=== PATIENT | male | born 1965 | race Caucasian/White ===

== ENCOUNTER 2016-08-29 17:13 | Emergency (ER) | payer MEDICAID ==
[~2016-08-29] VITALS: Ht 185.4 cm; Wt 112.1 kg
[~2016-08-29 17:13] MED LIST: LISI5TAB18 PO; METF1000 PO; ORE25 PO
[2016-08-29 17:45] VITALS: BP 120/82
--- NOTE | 2016-08-29 20:14 | NUR ---
PATIENT AMBULATED TO ER BED 6.
--- NOTE | 2016-08-29 20:28 | NUR ---
PATIENT PRESENTS TO ED WITH LLE CELLULITS X 1 WK PORT WINE COLOR FROM ANKLE UP TO CALF RASH TO BUE X 3 DAYS AND FACIAL PUFFY FLUSHED SEVERE PRURITUS X YESTERDAY PT STATES MED HX DM, HTN. DENIES N/V/D; SKIN IS PINK/WARM/DRY; AAOX4 WITH EVEN AND STEADY GAIT; LUNGS CLEAR BL; HR EVEN AND REGULAR; PT DENIES ANY FEVER, CP, SOB, OR COUGH AT THIS TIME; PATIENT STATES PAIN OF 5/10 AT THIS TIME; VSS; PATIENT POSITIONED FOR COMFORT; HOB ELEVATED; BEDRAILS UP X2; BED DOWN. ER MD MADE AWARE OF PT STATUS.
--- NOTE | 2016-08-29 21:00 | NUR ---
PATIENT BEING EVALUATED BY DR. BUCKLEY.
[2016-08-29 21:04] LABS: BASOPHILS # (AUTO) 0.1 K/uL (0.00-0.22); BASOPHILS % (AUTO) 1.9 % (0.0-2.0); EOSINOPHILS # (AUTO) 0.5 K/uL (0-0.4); EOSINOPHILS % (AUTO) 7.3 % (0.0-4.0); HEMATOCRIT 47.2 % (36-52); HEMOGLOBIN 15.2 g/dL (12.0-18.0); LYMPHOCYTES % (AUTO) 14.7 % (20.5-51.1); MEAN CORPUSCULAR HEMOGLOBIN 28 pg (27-31); MEAN CORPUSCULAR HGB CONC 32 g/dL (33-37); MEAN CORPUSCULAR VOLUME 87 fL (80-94); MONOCYTES # (AUTO) 0.7 K/uL (0.8-1.0); MONOCYTES % (AUTO) 11.2 % (1.7-9.3); NEUTROPHILS # (AUTO) 4.3 K/uL (1.8-7.7); NEUTROPHILS % (AUTO) 64.9 % (42.2-75.2); PLATELET COUNT (AUTO) 169 K/uL (140-450); RED BLOOD CELL COUNT(AUTO) 5.45 MIL/uL (4.20-6.10); RED CELL DISTRIBUTION WIDTH 13.1 % (11.6-13.7); WHITE BLOOD COUNT (AUTO) 6.6 K/uL (4.8-10.8)
[2016-08-29 21:14] LABS: ANION GAP 10.8 (8-16); CALCIUM 8.8 mg/dL (8.5-10.1); CARBON DIOXIDE 30.4 mmol/L (21-32); CREATININE 1.1 mg/dL (0.7-1.3); POTASSIUM 4.2 mmol/L (3.5-5.1)
[2016-08-29 21:20] LABS: ALBUMIN 3.7 g/dL (3.4-5.0); TOTAL BILIRUBIN 0.3 mg/dL (0.0-1.0); TOTAL PROTEIN, SERUM 7.4 g/dL (6.4-8.2)
--- NOTE | 2016-08-29 21:41 | NUR ---
PT RESTING IN BED. NO SOB NOTED AT THIS TIME. PT DENIES ANY DISCOMFORT. WILL CONTINUE TO MONITOR.
--- NOTE | 2016-08-29 22:34 | NUR ---
PT HAVING US DONE AT BEDSIDE AT THIS TIME.
[2016-08-29] MEDS ORDERED: CLINDAMYCIN 900 MG in DEXTROSE 5% 100 ML IV ONE (23:40)
[2016-08-29] MEDS ORDERED: CLINDAMYCIN 900 MG/6 ML VIAL IV ONE (23:47)
--- NOTE | 2016-08-30 00:16 | NUR ---
PT RESTING IN BED. NO SOB NOTED. DENIES ANY DISCOMFORT AT THIS TIME. WILL CONTINUE TO MONITOR.
[2016-08-30 02:00] VITALS: BP 119/63
--- NOTE | 2016-08-30 02:00 | NUR ---
Patient discharged with v/s stable. Written and verbal after care instructions given and explained. Patient alert, oriented and verbalized understanding of instructions. Ambulatory with steady gait. All questions addressed prior to discharge. ID band removed. Patient advised to follow up with PMD. Rx of CLEOCIN given. Patient educated on indication of medication including possible reaction and side effects. Opportunity to ask questions provided and answered.
== END 2016-08-30 02:00 | disposition home or self-care (01) ==
LOC: MED 17:13
DX: R21 Rash and other nonspecific skin eruption (principal); E11.9 Type 2 diabetes mellitus without complications; I10 Essential (primary) hypertension; L53.9 Erythematous condition, unspecified; Z79.84 Long term (current) use of oral hypoglycemic drugs; Z79.899 Other long term (current) drug therapy
CPT/HCPCS: 36415; 80053; 82948; 85025; 85379; 93971; 96365; 99285; J3490; Q0092

== ENCOUNTER 2016-09-01 21:47 | Emergency (ER) | payer MEDICAID ==
[~2016-09-01] VITALS: Ht 182.9 cm; Wt 113.5 kg
[2016-09-01 22:24] VITALS: BP 135/87
--- NOTE | 2016-09-02 01:36 | NUR ---
PATIENT LEFT WITHOUT BEING SEEN BY DR. BUCKLEY. NO FURTHER CARE PROVIDED FOR PATIENT.
== END 2016-09-02 01:36 | disposition left against medical advice (07) ==
LOC: MED 21:47
DX: R21 Rash and other nonspecific skin eruption (principal); Z53.21 Procedure and treatment not carried out due to patient leaving prior to being seen by health care provider

== ENCOUNTER 2016-09-02 19:49 | Emergency (ER) | payer MEDICAID ==
[~2016-09-02] VITALS: Ht 185.4 cm; Wt 114.8 kg
[2016-09-02 20:47] VITALS: BP 150/100
--- NOTE | 2016-09-02 22:03 | NUR ---
AMBULATED TO ER BED 3
--- NOTE | 2016-09-02 22:05 | NUR ---
51Y M BIB SELF C/O CELLULITIS ON ALL EXTREMITIES. PT ARMS AND LEGS ARE SWOLLEN WITH RASH LIKE APPEARANCE THROUGHOUT. PT STATES CELLULITIS OCCURRED 2 WEEKS AGO AND WAS SEEN HERE AT [place] 1 WEEK AGO FOR TX. PT STATES TX AT [place] DID NOT SEEN TO WORK. PT DENIES ANY N/V/D, CP, SOB AT THE MOMENT. PT IS AAOX4. BREATHING IS CLEAR AND UNLBAORED BILAT.
--- NOTE | 2016-09-02 22:30 | NUR ---
Patient being evaluated by physician at bedside.
[2016-09-02 22:49] VITALS: BP 137/91
--- NOTE | 2016-09-02 22:49 | NUR ---
Patient discharged with v/s stable. Written and verbal after care instructions given and explained. Patient alert, oriented and verbalized understanding of instructions. Ambulatory with steady gait. All questions addressed prior to discharge. ID band removed. Patient advised to follow up with PMD. Rx of BENADRYL 25MG AND PREDNISONE 50MG, KEFLEX 500MG given. Patient educated on indication of medication including possible reaction and side effects. Opportunity to ask questions provided and answered.
== END 2016-09-02 22:49 | disposition home or self-care (01) ==
LOC: MED 19:49
DX: L30.9 Dermatitis, unspecified (principal); L03.90 Cellulitis, unspecified; I10 Essential (primary) hypertension; E11.9 Type 2 diabetes mellitus without complications
CPT/HCPCS: 99283

== ENCOUNTER 2016-10-02 16:56 | Emergency (ER) | payer MEDICAID ==
[~2016-10-02] VITALS: Ht 182.9 cm; Wt 110.9 kg
[2016-10-02 16:58] VITALS: BP 124/88
[2016-10-02 18:04] VITALS: BP 130/81
== END 2016-10-02 18:04 | disposition home or self-care (01) ==
LOC: MED 16:56
DX: L30.9 Dermatitis, unspecified (principal); E11.9 Type 2 diabetes mellitus without complications; I10 Essential (primary) hypertension; Z79.84 Long term (current) use of oral hypoglycemic drugs; Z79.899 Other long term (current) drug therapy
CPT/HCPCS: 99283

== ENCOUNTER 2017-12-04 14:10 | Emergency (ER) | payer SELFPAY ==
[~2017-12-04] VITALS: Ht 182.9 cm; Wt 113.9 kg
--- NOTE | 2017-12-04 14:12 | NUR ---
PT AMBULATES TO BED 6
[2017-12-04 14:14] VITALS: BP 137/82
--- NOTE | 2017-12-04 14:31 | NUR ---
PT C/O CLEAR PRODUCTIVE COUGH X 2 WKS WITH SOB HX; DM RX; METFORMIN
--- NOTE | 2017-12-04 14:36 | NUR ---
XRAY AT BEDSIDE
[2017-12-04 14:48] LABS: BASOPHILS # (AUTO) 0.1 K/uL (0.00-0.22); BASOPHILS % (AUTO) 0.7 % (0.0-2.0); EOSINOPHILS # (AUTO) 0.2 K/uL (0-0.4); HEMATOCRIT 40.7 % (36-52); HEMOGLOBIN 13.9 g/dL (12.0-18.0); LYMPHOCYTES # (AUTO) 4.7 K/uL (2.0-11.5); LYMPHOCYTES % (AUTO) 57.9 % (20.5-51.1); MEAN CORPUSCULAR HEMOGLOBIN 29 pg (27-31); MEAN CORPUSCULAR HGB CONC 34 g/dL (33-37); MEAN CORPUSCULAR VOLUME 84.1 fL (80-94); MONOCYTES # (AUTO) 0.7 K/uL (0.8-1.0); MONOCYTES % (AUTO) 8.7 % (1.7-9.3); NEUTROPHILS # (AUTO) 2.5 K/uL (1.8-7.7); NEUTROPHILS % (AUTO) 30.7 % (42.2-75.2); PLATELET COUNT (AUTO) 176 K/uL (140-450); RED BLOOD CELL COUNT(AUTO) 4.84 MIL/uL (4.20-6.10); RED CELL DISTRIBUTION WIDTH 13.9 % (11.6-13.7); WHITE BLOOD COUNT (AUTO) 8.1 K/uL (4.8-10.8)
[2017-12-04 15:05] LABS: ANION GAP 10.7 (8-16); CARBON DIOXIDE 25.5 mmol/L (21-32); POTASSIUM 4.2 mmol/L (3.5-5.1)
[2017-12-04 15:10] LABS: ALBUMIN 2.7 g/dL (3.4-5.0); TOTAL BILIRUBIN 0.4 mg/dL (0.0-1.0)
--- NOTE | 2017-12-04 15:50 | NUR ---
Patient discharged with v/s stable. Written and verbal after care instructions given and explained. Patient alert, oriented and verbalized understanding of instructions. Ambulatory with steady gait. All questions addressed prior to discharge. ID band removed. Patient advised to follow up with PMD. Rx of albuterol and doxycycline given. Patient educated on indication of medication including possible reaction and side effects. Opportunity to ask questions provided and answered.
[2017-12-04 15:51] VITALS: BP 135/80
== END 2017-12-04 15:50 | disposition home or self-care (01) ==
LOC: MED 14:10
DX: J40 Bronchitis, not specified as acute or chronic (principal); L03.116 Cellulitis of left lower limb; E11.9 Type 2 diabetes mellitus without complications; I10 Essential (primary) hypertension; Z79.84 Long term (current) use of oral hypoglycemic drugs; Z79.899 Other long term (current) drug therapy
CPT/HCPCS: 36415; 71045; 80053; 82948; 83690; 83880; 84484; 85025; 85610; 85730; 93005; 99285

== ENCOUNTER 2017-12-13 03:53 | Inpatient (IN) | payer SELFPAY ==
[~2017-12-13] VITALS: Ht 182.9 cm; Wt 113.4 kg
[2017-12-13 04:00] VITALS: BP 116/87
--- NOTE | 2017-12-13 04:00 | NUR ---
PT TAKEN TO BED 2
--- NOTE | 2017-12-13 04:01 | NUR ---
PT PRESENTED ER WITH C/O PAIN, SWELLING, REDNESS AND DRAINAGE COMING FROM LEFT LEG, RIGHT AND LEFT ANTICUBITAL AREA IN THE ARM X 3 DAYS. PT STATED THAT HE WAS SEEN IN [place]. ONE WEEK AGO FOR CELLULITIS AND BRONCHITIS AND WAS GIVEN MEDICATION. PT STATED THAT HE HAS HAD NO RELIEF AND CELLULITIS HAS SPREAD UP TO THE THE ANKLE. PT HAS REDNESS, PAPULE-LIKE RAISED RASH ON ANTICUBITAL REGION OF ARMS BILATERAL. ON LEFT FOOT, PT HAS REDNESS AND EDEMA WITH FLUID DRAINAGE. PT IS A/O X 4.EVEN AND STEADY GAIT; PT DENIES ANY FEVER AT THIS TIME; PATIENT STATES PAIN OF 5/10 AT THIS TIME; VSS; PATIENT POSITIONED FOR COMFORT; HOB ELEVATED; BEDRAILS UP X2; BED DOWN. ER MD MADE AWARE OF PT STATUS.
--- NOTE | 2017-12-13 05:06 | NUR ---
Dr. Aponte evaluating patient at bedside.
[2017-12-13] MEDS ORDERED: cefTRIAXone 1,000 MG in DEXT 5% MINI-BAG PLUS 50 ML IV ONE (05:10)
[2017-12-13] MEDS ORDERED: NACL 0.9% 1,000 ML IV SCH (05:10)
--- NOTE | 2017-12-13 05:21 | NUR ---
EKG PERFORMED AT BEDSIDE.
[2017-12-13] MEDS ORDERED: cefTRIAXone 1,000 MG VIAL ONE (05:22)
[2017-12-13 06:07] LABS: BASOPHILS % (AUTO) 0.4 % (0.0-2.0); EOSINOPHILS # (AUTO) 0.5 K/uL (0-0.4); EOSINOPHILS % (AUTO) 7.4 % (0.0-4.0); HEMATOCRIT 45.5 % (36-52); HEMOGLOBIN 15.4 g/dL (12.0-18.0); LYMPHOCYTES # (AUTO) 2.4 K/uL (2.0-11.5); LYMPHOCYTES % (AUTO) 36.8 % (20.5-51.1); MEAN CORPUSCULAR HEMOGLOBIN 29 pg (27-31); MEAN CORPUSCULAR HGB CONC 34 g/dL (33-37); MEAN CORPUSCULAR VOLUME 85.7 fL (80-94); MONOCYTES # (AUTO) 0.6 K/uL (0.8-1.0); MONOCYTES % (AUTO) 9.2 % (1.7-9.3); NEUTROPHILS % (AUTO) 46.2 % (42.2-75.2); PLATELET COUNT (AUTO) 206 K/uL (140-450); RED CELL DISTRIBUTION WIDTH 15.1 % (11.6-13.7); WHITE BLOOD COUNT (AUTO) 6.5 K/uL (4.8-10.8)
[2017-12-13 06:18] LABS: ANION GAP 9.4 (8-16); CARBON DIOXIDE 26.7 mmol/L (21-32); CREATININE 1.1 mg/dL (0.7-1.3); POTASSIUM 4.1 mmol/L (3.5-5.1)
[2017-12-13 06:21] LABS: PROTHROMBIN TIME 9.9 secs (10.8-13.4)
[2017-12-13 06:30] LABS: ALBUMIN 3.2 g/dL (3.4-5.0); TOTAL BILIRUBIN 0.7 mg/dL (0.0-1.0)
[2017-12-13] MEDS ORDERED: INSULIN LISPRO SLIDING SCALE 100 UNITS/ML VIAL SUBQ PRN (06:30)
[2017-12-13] MEDS ORDERED: DOCUSATE SODIUM 100 MG GELCAP PO PRN (06:30)
[2017-12-13] MEDS ORDERED: ACETAMINOPHEN 325 MG TAB PO PRN (06:30)
[2017-12-13] MEDS ORDERED: LORazepam 2 MG/ML VIAL IM/IVP PRN (06:30)
[2017-12-13] MEDS ORDERED: MORPHINE SULFATE 2 MG/ML SYR IVP PRN (06:30)
[2017-12-13] MEDS ORDERED: HYDROcodone/APAP 5/325 MG 1 TAB TAB PO PRN (06:30)
[2017-12-13] MEDS ORDERED: DEXTROSE 50% 50 ML SYR IVP PRN (06:30)
[2017-12-13] MEDS ORDERED: ONDANSETRON 4 MG/2 ML VIAL IM/IVP PRN (06:30)
[2017-12-13] MEDS ORDERED: ZOLPIDEM 5 MG TAB PO PRN (06:30)
--- NOTE | 2017-12-13 07:05 | NUR ---
Pt report given to EDD LIMON. Transfer of care at this time. VITALS STABLE
--- NOTE | 2017-12-13 07:05 | NUR ---
Patient will be admitted to care of DR. VIRK. Admited to MED SURG. Will go to [id number]. Belongings list completed. Report to EDD LIMON.VITALS STABLE.
[2017-12-13 07:30] VITALS: BP 126/76
--- NOTE | 2017-12-13 07:30 | NUR ---
PATIENT ADMITTED TO THE UNIT FOR ER. PATIENT AWAKE, ALERT AND ORIENTED. PATIENT ON ROOM AIR NO S/S OF DISTRESS NOTED. PATIENT DENIES PAIN AT THIS TIME. REDNESS NOTED TO BILATERAL UPPER ARMS AND LOWER LEG. SKIN IS INTACT. MILD DRAINAGE NOTED ON THE LEFT FOOT. BED LOWERED WITH CALL LIGHT WITHIN REACH. WILL CONTINUE TO MONITOR
[2017-12-13 08:06] LABS: BARBITURATE, URINE NEG. ng/ml (NEG <=200); BENZODIAZEPINE, URINE NEG. ng/mL (NEG <=200); CANNABINOID, URINE NEG. ng/mL (NEG <=50); COCAINE, URINE NEG. ng/mL (NEG <=300); OPIATE, URINE NEG. ng/mL (NEG <=2000); PHENCYCLIDINE SCREEN,URINE NEG. ng/mL (NEG <=25)
[2017-12-13 08:16] LABS: APPEARANCE,URINE CLEAR (CLEAR); BILIRUBIN,URINE NEGATIVE (NEGATIVE); BLOOD, URINE NEGATIVE (NEGATIVE); COLOR,URINE YELLOW (YELLOW); LEUKOCYTE ESTERASE ,URINE NEGATIVE (NEGATIVE); NITRITE, URINE NEGATIVE (NEGATIVE); UGLUCOSE NEGATIVE (NEGATIVE)
[2017-12-13 08:51] LABS: CHOL/HDL RATIO 6.2 (1-4.5); MAGNESIUM 1.9 mg/dL (1.8-2.4); PHOSPHORUS 3.8 mg/dL (2.5-4.9); THYROID STIMULATING HORMONE 3.64 uIU/mL (0.34-3.74)
--- NOTE | 2017-12-13 08:59 | NUR ---
PATIENT HAS BEEN SCREENED AND CATEGORIZED MODERATE NUTRITION RISK. PATIENT WILL BE SEEN WITHIN 3-5 DAYS OF ADMISSION. 12/15/17 12/17/[address]
[2017-12-13] MEDS: BLOOD GLUCOSE MONITORING 1 DEV DEV FS SCH ×4 (09:57→21:25)
[2017-12-13] MEDS: NACL 0.9% 1,000 ML IV SCH (09:58)
--- NOTE | 2017-12-13 09:59 | NUR ---
DUE TO RECEIVING A FNS CONSULT, PATIENT HAS BEEN CATEGORIZED HIGH RISK. PATIENT WILL BE SEEN WITHIN 1-2 DAYS FROM RECEIVING FNS CONSULT. 12/13/17- 12/14/[address]
[2017-12-13] MEDS: LACTOBACILLUS RHAMNOSUS GG 1 EACH CAP PO SCH (10:01)
[2017-12-13] MEDS ORDERED: metFORMIN 500 MG TAB PO SCH (10:30)
--- NOTE | 2017-12-13 11:20 | NUR ---
PATIENT ASLEEP IN BED. NO S/S OF DISTRESS NOTED
--- NOTE | 2017-12-13 14:37 | NUR ---
WOUND CARE CONSULT PROVIDES AND ASSESSMENT DONE: UPPER AND LOWER EXTREMITIES DRY SKIN ECZEMA DERMATITIS LEFT AND RIGHT UPPER ARMS ANTECUBITAL AREAS SKIN INTACT, DRY, WARM WITH ERYTHEMA, WOUND EDGE SKIN DRY NESS FROM ECZEMA. LEFT MEDIAL LOWER LEG TO DAMIAN ANKLE AREA MULTIPLE PARTIAL THICKNESS SKIN LOSS,WOUND BED IS DRY AND IRRITATED BY RUBBING DUE TO ITCHINESS, LLE DAMIAN ANKLE AREA WARM WITH ERYTHEMA, +1 EDEMA, IVY OF PAIN. RECOMMENDATION: -APPLY TRAMAZOLINE CREAM TO DRY ECZEMATID SKIN BID AND LEAVE IT OPEN TO AIR -CLEANSE LLE WITH NS. PAT DRY, APPLY XEROFORM DRESSING AND COVER DRY DRESSING, WRAP WITH KERLIX ROLLS CHANGE Q 72 HOURS AND PRN IF SOILING. -CONTINUE ANTIBIOTIC TREATMENT FOR CELLULITIS PCP RECOMMENDED. Addendum: 12/13/17 at 1458 by Ezequiel Alaniz RN (Grace) CORRECTION: DELETE TRAMAZOLINE CREAM -APPLY TRIAMCINOLONE CREAM TO DRY ECZEMATID SKIN BID AND LEAVE IT OPEN TO AIR
[2017-12-13 16:00] VITALS: BP 119/81
[2017-12-13] MEDS: metFORMIN 500 MG TAB PO SCH (17:00)
--- NOTE | 2017-12-13 19:19 | NUR ---
PATIENT REPORT GIVEN AT BEDSIDE. PATIENT ENDORSED IN STABLE CONDITION
--- NOTE | 2017-12-13 19:20 | NUR ---
RECEIVED BEDSIDE REPORT FROM DAY SHIFT NURSE EDD RN, PT STABLE, NO DISTRESS NOTED, IV TO L HAND 20G PATENT, INTACT, INFUSING NS @ 60ML/HR, INFUSING WELL, PT ON ROOM AIR, NO SOB, DENIES ANY PAIN AT THIS MOMENT, CELLULITIS NOTED WITH REDNESS AND SMALL AMOUNT OF DRAINAGE TO L AC AREA AND CELLULITIS TO THE R AC DRY AND RED, L LEG CELLULITIS IS WRAPPED WITH KERLIX, DRESSING CLEAN DRY AND INTACT, INITIAL ASSESSMENT DONE, ALL SAFETY PRECAUTION MET, CALL LIGHT WITHIN REACH, WILL CONTINUE TO MONITOR.
[2017-12-13] MEDS: TRIAMCINOLONE 0.1% CRM 80 GM TUBE TP SCH (21:12)
--- NOTE | 2017-12-13 21:12 | NUR ---
DUE MEDICATION ADMINISTERED, PT TOLERATED WELL, BLOOD SUGAR 125, NO INSULIN ADMINISTERED PER SLIDING SCALE, PT RESTING, NO DISTRESS NOTED, CALL LIGHT WITHIN REACH, WILL CONTINUE TO MONITOR.
--- NOTE | 2017-12-13 21:25 | NUR ---
WOUND CULTURE OBTAINED FROM THE L UPPER EXTREMETIES CELLULITIS, PT TOLERATED WELL, R UPPER EXTREMITIES CELLULITIS INTACT, NO DRAINAGE NOTED, KENALOG CREAM ADMINISTERED, PT TOLERATED WELL, NOTIFIED DR. GRADY REGARDING R UPPER EXTREMITIES NO DRAINAGE CULTURE NOT TAKEN. STATED UNDERSTANDING.
[2017-12-13 23:50] VITALS: BP 110/62
--- NOTE | 2017-12-13 23:50 | NUR ---
CHECKED ON PT, PT SLEEPING, NO DISTRESS NOTED, V/S TAKEN, WNL, CALL LIGHT WITHIN REACH, WILL CONTINUE TO MONITOR.
[2017-12-14] MEDS ORDERED: PNEUMOCOCCAL VACCINE 23 MCG/0.5 ML VIAL IMVAC PRN (02:40)
[2017-12-14] MEDS ORDERED: INFLUENZA VIRUS VACCINE QUAD 0.5 ML SYR IMVAC PRN (02:40)
--- NOTE | 2017-12-14 04:10 | NUR ---
CHECKED ON PT, PT SLEEPING, NO DISTRESS NOTED, CALL LIGHT WITHIN REACH, WILL CONTINUE TO MONITOR.
[2017-12-14] MEDS: NACL 0.9% 1,000 ML IV SCH (04:46)
[2017-12-14] MEDS: BLOOD GLUCOSE MONITORING 1 DEV DEV FS SCH ×2 (06:20→11:30)
--- NOTE | 2017-12-14 07:20 | NUR ---
ENDORSED PT TO DAY SHIFT NURSE NICOLASA RN, PT STABLE, NO DISTRESS NOTED, CALL LIGHT WITHIN REACH
--- NOTE | 2017-12-14 07:23 | NUR ---
RECEIVED REPORT FROM NIGHT RN. PT RESTING IN BED. AAOX4. NO S/S OF ACUTE DISTRESS. PT DENIES PAIN. IV SITE PATENT AND INTACT. REDNESS TO RIGHT AND LEFT AC AND LEFT FOOT NOTED. CALL LIGHT WITHIN REACH. SAFETY MEASURES ENSURED. WILL CONTINUE TO MONITOR.
[2017-12-14 07:30] LABS: BASOPHILS % (AUTO) 0.9 % (0.0-2.0); EOSINOPHILS # (AUTO) 0.5 K/uL (0-0.4); EOSINOPHILS % (AUTO) 9.4 % (0.0-4.0); HEMATOCRIT 43.1 % (36-52); HEMOGLOBIN 14.5 g/dL (12.0-18.0); LYMPHOCYTES # (AUTO) 1.9 K/uL (2.0-11.5); LYMPHOCYTES % (AUTO) 39.1 % (20.5-51.1); MEAN CORPUSCULAR HEMOGLOBIN 29 pg (27-31); MEAN CORPUSCULAR HGB CONC 34 g/dL (33-37); MEAN CORPUSCULAR VOLUME 84.9 fL (80-94); MONOCYTES # (AUTO) 0.5 K/uL (0.8-1.0); MONOCYTES % (AUTO) 10.7 % (1.7-9.3); NEUTROPHILS % (AUTO) 39.9 % (42.2-75.2); PLATELET COUNT (AUTO) 192 K/uL (140-450); RED BLOOD CELL COUNT(AUTO) 5.08 MIL/uL (4.20-6.10); RED CELL DISTRIBUTION WIDTH 14.7 % (11.6-13.7); WHITE BLOOD COUNT (AUTO) 4.9 K/uL (4.8-10.8)
[2017-12-14 07:40] LABS: ANION GAP 3.6 (8-16); CARBON DIOXIDE 27.6 mmol/L (21-32); CREATININE 0.9 mg/dL (0.7-1.3); POTASSIUM 4.2 mmol/L (3.5-5.1)
[2017-12-14 07:48] VITALS: BP 128/85
[2017-12-14 07:49] LABS: MAGNESIUM 1.9 mg/dL (1.8-2.4); PHOSPHORUS 4.1 mg/dL (2.5-4.9)
[2017-12-14 08:29] LABS: T4 (THYROXINE) 7.5 ug/dL (4.5-12.0)
[2017-12-14] MEDS: LACTOBACILLUS RHAMNOSUS GG 1 EACH CAP PO SCH (08:32)
[2017-12-14] MEDS: metFORMIN 500 MG TAB PO SCH (08:33)
--- NOTE | 2017-12-14 08:33 | NUR ---
DUE MEDS GIVEN WITH EDUCATION. PT VERBALIZED UNDERSTANDING. CALL LIGHT WITHIN REACH. SAFETY MEASURES ENSURED. WILL CONTINUE TO MONITOR.
[2017-12-14] MEDS: TRIAMCINOLONE 0.1% CRM 80 GM TUBE TP SCH (08:34)
--- NOTE | 2017-12-14 08:37 | NUR ---
DUE TO RECEIVING A FNS CONSULT, PATIENT HAS BEEN CATEGORIZED HIGH RISK. PATIENT WILL BE SEEN WITHIN 1-2 DAYS FROM RECEIVING FNS CONSULT. 12/14/[address]
[2017-12-14] MEDS ORDERED: CLIN150C1 PO (10:36)
[2017-12-14] MEDS ORDERED: LACT10CA1 PO (10:36)
[2017-12-14] MEDS ORDERED: LISI5TAB18 PO ×2 (10:36→10:39)
[2017-12-14] MEDS ORDERED: CLIN300C2 PO (10:36)
[2017-12-14] MEDS ORDERED: KEN.1O80 TP (10:39)
[2017-12-14] MEDS ORDERED: METF500T PO (10:39)
[2017-12-14] MEDS ORDERED: ATOR20TA40 PO (10:48)
[2017-12-14] MEDS ORDERED: ASPI81CT89 PO (10:48)
--- NOTE | 2017-12-14 12:00 | NUR ---
PATIENT RESTING IN BED. NO S/S OF ACUTE DISTRESS. PT DENIES PAIN. CALL LIGHT WITHIN REACH. SAFETY MEASURES ENSURED. WILL CONTINUE TO MONITOR.
--- NOTE | 2017-12-14 15:37 | NUR ---
PT CLEARED FOR DISCHARGE. DISCHARGE INSTRUCTIONS PROVIDED. PT VERBALIZED UNDERSTANDING. IV TAKEN OUT. TIP INTACT. PT WHEELED TO FRONT LOBBY. NO S/S OF ACUTE DISTRESS. PT DENIES PAIN. PT STABLE.
== END 2017-12-14 15:38 | disposition home or self-care (01) | DRG 603 ==
LOC: MED 03:53 → MTU 06:33
PROVIDERS: ADMIT General Practice; ATTEND General Practice
PROC: 3E02340 Introduction of Influenza Vaccine into Muscle, Percutaneous Approach (ICD-10-PCS; principal; 2017-12-14)
PROC: 3E0234Z Introduction of Serum, Toxoid and Vaccine into Muscle, Percutaneous Approach (ICD-10-PCS; 2017-12-14)
DX: L03.116 Cellulitis of left lower limb (principal); E44.0 Moderate protein-calorie malnutrition; E86.0 Dehydration; E66.9 Obesity, unspecified; L20.9 Atopic dermatitis, unspecified; E11.65 Type 2 diabetes mellitus with hyperglycemia; J40 Bronchitis, not specified as acute or chronic; I10 Essential (primary) hypertension; F15.10 Other stimulant abuse, uncomplicated; E11.51 Type 2 diabetes mellitus with diabetic peripheral angiopathy without gangrene; Z23 Encounter for immunization; Z88.8 Allergy status to other drugs, medicaments and biological substances; Z79.899 Other long term (current) drug therapy; Z68.33 Body mass index [BMI] 33.0-33.9, adult; Z83.3 Family history of diabetes mellitus; Z83.49 Family history of other endocrine, nutritional and metabolic diseases; Z82.49 Family history of ischemic heart disease and other diseases of the circulatory system; Z91.14 Patient's other noncompliance with medication regimen; Z71.51 Drug abuse counseling and surveillance of drug abuser
CPT/HCPCS: 36415; 71045; 80048; 80053; 80305; 81003; 82150; 82550; 82553; 82948; 83036; 83605; 83690; 83735; 83874; 83880; 84100; 84134; 84436; 84443; 84484; 85025; 85610; 85730; 87040; 87070; 87075; 87081; 87086; 87205; 90658; 90732; 93005; 93308; 93925; 93970; 96365; 99285; J0696; J1644; J7030; J7060; Q0092

== ENCOUNTER 2020-04-01 19:10 | Emergency (ER) | payer SELFPAY ==
[~2020-04-01] VITALS: Ht 182.9 cm; Wt 108.9 kg
[~2020-04-01 19:10] MED LIST changes: +ASPI-1822 PO; +ATOR20TA40 PO; +CLIN150C1 PO; +CLIN300C2 PO; +KEN.1O80 TP; +LACT10CA1 PO; -METF1000 PO; +METF500T PO; -ORE25 PO
[2020-04-01 19:20] VITALS: BP 122/69
[2020-04-01 20:15] VITALS: BP 122/69
== END 2020-04-01 20:15 | disposition home or self-care (01) ==
LOC: MED 19:10
DX: S61.412A Laceration without foreign body of left hand, initial encounter (principal); E11.9 Type 2 diabetes mellitus without complications; I10 Essential (primary) hypertension; Z79.84 Long term (current) use of oral hypoglycemic drugs; Z79.899 Other long term (current) drug therapy; Z79.82 Long term (current) use of aspirin; W45.8XXA Other foreign body or object entering through skin, initial encounter; Y93.89 Activity, other specified; Y92.89 Other specified places as the place of occurrence of the external cause; Y99.8 Other external cause status
CPT/HCPCS: 12001; 99282

== ENCOUNTER 2020-12-14 23:29 | Emergency (ER) | payer OTHER ==
[~2020-12-14] VITALS: Ht 182.9 cm; Wt 111.1 kg
[2020-12-14 23:58] VITALS: BP 135/76
--- NOTE | 2020-12-15 00:03 | NUR ---
TO LOBBY A/W BED AMBULATORY
--- NOTE | 2020-12-15 01:10 | NUR ---
SEEN AND CARRIED BY ALVARADO
[2020-12-15] MEDS ORDERED: KETOROLAC 30 MG/ML VIAL IM ONE (02:35)
[2020-12-15] MEDS ORDERED: ACETAMINOPHEN EXTRA STRENGTH 500 MG TAB PO ONE (02:35)
[2020-12-15] MEDS ORDERED: METOCLOPRAMIDE 10 MG TAB PO ONE (02:35)
--- NOTE | 2020-12-15 02:35 | NUR ---
MEDICATED PER [facility] ORDER, TOLERATED WELL
[2020-12-15] MEDS ORDERED: ACET-10509 PO (02:52)
[2020-12-15] MEDS ORDERED: MUPI2CRE22 TP (02:52)
[2020-12-15] MEDS ORDERED: SULF-59 PO (02:52)
[2020-12-15] MEDS ORDERED: IBUP-2213 PO (02:52)
[2020-12-15 03:40] VITALS: BP 128/78
--- NOTE | 2020-12-15 03:40 | NUR ---
Patient discharged with v/s stable. Written and verbal after care instructions given and explained. Patient alert, oriented and verbalized understanding of instructions. Ambulatory with steady gait. All questions addressed prior to discharge. ID band removed. Patient advised to follow up with PMD. Rx of TYLENOL, MUPIROCIN given. Patient educated on indication of medication including possible reaction and side effects. Opportunity to ask questions provided and answered.
== END 2020-12-15 03:40 | disposition home or self-care (01) ==
LOC: MED 23:29
DX: S81.802A Unspecified open wound, left lower leg, initial encounter (principal); L08.89 Other specified local infections of the skin and subcutaneous tissue; R51.9 Headache, unspecified; I87.2 Venous insufficiency (chronic) (peripheral); R60.0 Localized edema; E11.9 Type 2 diabetes mellitus without complications; I10 Essential (primary) hypertension; Z79.2 Long term (current) use of antibiotics; Z79.1 Long term (current) use of non-steroidal anti-inflammatories (NSAID); Z79.82 Long term (current) use of aspirin; Z79.899 Other long term (current) drug therapy; X58.XXXA Exposure to other specified factors, initial encounter; Y92.89 Other specified places as the place of occurrence of the external cause; Y93.89 Activity, other specified; Y99.8 Other external cause status
CPT/HCPCS: 70450; 96372; 99284; J1885; J8597